=== PATIENT | male | born 1945 | race Caucasian/White ===

== ENCOUNTER → 2016-10-18 | Outpatient (CLI) | payer SELFPAY ==
--- NOTE | 2016-10-18 13:16 | KCIC ---
PROCEDURE HISTORY Calcium screening. Reason For Study Reason: HYPERTENSION, CARDIOVASCULAR SCREENING / Spl. Instructions: / History: Grandmother hx of CAD TECHNIQUE High resolution, computed tomography of the heart was performed with ECG gating and suspended respiration using the Siemens HeartView CT. No contrast material was administered. Post processing was performed on the 3-D computer workstation using diastolic phase images to measure the amount of coronary vascular calcium. Scoring was performed utilizing the Agaston Method. FINDINGS Thorax: No significant abnormality is identified in the lungs or mediastinum. Note that this CT exam is limited to the heart and adjacent structures. Coronary arteries: CALCIUM IS PRESENT. TOTAL AGASTON CALCIUM SCORE =559.2. Calcium is detected in the coronary circulation and confirms the presence of atherosclerotic plaque. The score is derived from a score of 4.5 in the LAD and 554.7 in the RCA. The presence of coronary calcium confirms the presence of atherosclerotic plaque. The greater the amount of coronary calcium, the greater the likelihood of stenotic or occlusive coronary artery disease. However, there is not a one-to-one relationship, and findings may not be site specific. The total amount of calcium correlates best with the total amount of atherosclerotic plaque, although the true plaque burden may be underestimated by calcium score. A high calcium score may be consistent with a MODERATE TO HIGH RISK risk of cardiovascular events within the 2-5 years. IMPRESSION 1. Coronary atherosclerosis is present, extensive. 2. High risk of cardiovascular event within the next 2 to 5 years. 3. High probability of stenotic (potentially flow-limiting) or occlusive coronary artery disease RECOMMENDATIONS 1. Strongly consider further cardiac evaluation for pre-clinical coronary heart disease. 2. [place] aggressive cardiovascular risk factor modification as indicated based on risk profile. Additional supporting information concerning the findings and recommendation contained within this report can be found in the consensus statements on coronary vascular calcium published by the [place] and [employer] 5 Conference (Circulation 1996; 94: 9586-7379; J Am Adalberto Cardiol 2000; 36: 326-340 and Circulation 2000; 101: 111-116). PQRS STATEMENT One or more of the following individualized dose reduction techniques were utilized for this study: 1.Automated exposure control 2.Adjustment of the mA and/or kV according to patient size 3.Use of iterative reconstruction technique Electronically signed by: Mykel Guevara (Oct 18, 2016 13:15:36)
== END | disposition home or self-care (01) ==
LOC: KCIC CT 10:39
PROVIDERS: ATTEND Family Medicine
DX: Z13.6 Encounter for screening for cardiovascular disorders (principal); I10 Essential (primary) hypertension
CPT/HCPCS: 75571